=== PATIENT | female | born 1960 | race Caucasian/White ===

== ENCOUNTER 2019-06-02 06:05 | Inpatient (IN) | payer BC ==
[~2019-06-02 06:05] MED LIST: Acetaminophen 325 MG Tab PO SCH; Pregabalin 25 MG Cap PO SCH; oxyCODONE ER 10 MG TAB.ER PO SCH
[2019-06-02] MEDS ORDERED: Bisacodyl 5 MG Tab PO PRN (06:27)
[2019-06-02] MEDS ORDERED: Naloxone 0.4 MG/ML SDV IVPUSH PRN (06:27)
[2019-06-02] MEDS ORDERED: Ondansetron 4 MG/2 ML SDV IVPUSH PRN (06:27)
[2019-06-02] MEDS ORDERED: Morphine 2 MG/ML Syringe IVPUSH PRN (06:27)
[2019-06-02] MEDS ORDERED: Magnesium Hydroxide 400 MG/5 ML Susp 30 ML Cup PO PRN (06:27)
[2019-06-02] MEDS ORDERED: Sennosides 8.6 MG Tab PO PRN (06:27)
[2019-06-02] MEDS: ceFAZolin 1 GM Vial ONE ×2 (06:47→08:40)
[2019-06-02] MEDS: Bupivacaine 0.25% 10 ML SDV ONE ×2 (06:47→08:45)
[2019-06-02] MEDS: Iodine/Sodium Iodide 2% Tincture 30 ML Bottle ONE ×2 (06:48→08:39)
[2019-06-02] MEDS: Vancomycin 1 GM SDV ONE ×2 (06:49→08:49)
[2019-06-02] MEDS ORDERED: Lidocaine 1%/Sod Bicarbonate in NS 8.4% 1 ML Syringe IDERM PRN (07:00)
[2019-06-02] MEDS ORDERED: Sodium Chloride 0.9% 10 ML Syringe FLUSH PRN (07:00)
[2019-06-02] MEDS ORDERED: Lactated Ringers 1,000 ML IV SCH (07:00)
--- NOTE | 2019-06-02 07:09 | PCM.PREANE ---
Preanesthetic Assessment - Anesthesia/Transfusion/Family Hx Anesthesia History: Prior Anesthesia Without Reaction Family History of Anesthesia Reaction: No Transfusion History: No Prior Transfusion(s) - Review of Systems General: No Symptoms Pulmonary: No Symptoms Cardiovascular: No Symptoms Gastrointestinal: No Symptoms Neurological: No Symptoms Other: Reports: None - Physical Assessment NPO Status Date: 06/01/19 NPO Status Time: 18:00 Vital Signs: Last Vital Signs Temp 98.0 F 06/02/19 06:15 Pulse 72 06/02/19 06:15 Resp 16 06/02/19 06:15 BP 147/85 H 06/02/19 06:15 Pulse Ox 96 06/02/19 06:15 Height: 1.7 m Weight: 103.873 kg ASA Class: 2 Mental Status: Alert & Oriented x3 Airway Class: Mallampati = 3 Dentition: Reports: Normal Dentition Thyro-Mental Finger Breadths: 3 Mouth Opening Finger Breadths: 4 ROM/Head Extension: Full Lungs: Clear to Auscultation, Normal Respiratory Effort Cardiovascular: Regular Rate, Regular Rhythm - Lab Values: Laboratory Last Values PT 10.3 SECONDS (9.7-12.0) 05/21/19 13:05 INR 0.94 05/21/19 13:05 MRSA (PCR) Negative 05/21/19 13:05 - Allergies Allergies/Adverse Reactions: Allergies Allergy/AdvReac Type Severity Reaction Status Date / Time pralu-2 TR Allergy Hives Uncoded 05/30/19 09:25 - Acknowledgements Anesthesia Type Planned: General Anesthesia, Spinal, Regional Block Pt an Appropriate Candidate for the Planned Anesthesia: Yes Alternatives and Risks of Anesthesia Discussed w Pt/Guardian: Yes Pt/Guardian Understands and Agrees with Anesthesia Plan: Yes PreAnesthesia Questionnaire HEENT History: Reports: Impaired Vision Cardiovascular History: Reports: High Cholesterol, Hypertension [employer] FEEDBACK History: Reports: Musculoskeletal History: Reports: Osteoarthritis Neurological History: Reports: Migraines Psychiatric History: Reports: Anxiety, Depression Other Hematologic History: States she bruises easily Oncologic (Cancer) History: Reports: Cervix - Past Surgical History HEENT Surgical History: Reports: None Cardiovascular Surgical History: Reports: None GI Surgical History: Reports: Other (See Below) Other GI Surgeries/Procedures: Sleeve Gastrectomy Female Surgical History: Reports: Cervical Cryotherapy, Other (See Below) Other Female Surgeries/Procedures: Colposcopy - SUBSTANCE USE Smoking Status *Q: Never Smoker Tobacco Use Within Last Twelve Months: No Recreational Drug Use History: No - HOME MEDS Home Medications: Home Meds Cholecalciferol (Vitamin D3) [Vitamin D3] 1 - 2 tab PO DAILY 05/30/19 [History] - CURRENT (IN HOUSE) MEDS Current Meds: Current Medications Acetaminophen (Tylenol) 975 mg PO ONETIME [facility] Last Admin: 06/02/19 06:23 Dose: 975 mg Bisacodyl (Dulcolax) 5 mg PO DAILY PRN PRN Reason: Constipation Morphine Sulfate 8 mg/Epinephrine HCl 0.3 mg/Cefuroxime Sodium 750 mg/Ketorolac Tromethamine 30 mg/Sodium Chloride 27.9 ml 0 mg .XX ONETIME ONE Stop: 06/02/19 07:31 Cyclobenzaprine HCl (Flexeril) 10 mg PO TID PRN PRN Reason: Spasms Docusate Sodium (Colace) 100 mg PO BID [facility] Famotidine (Pepcid) 20 mg PO Q12H [facility] Lactated Ringer's (Ringers, Lactated) 1,000 mls @ 125 mls/hr IV ASDIRECTED [facility] Stop: 06/02/19 23:00 Last Admin: 06/02/19 06:35 Dose: 125 mls/hr Cefazolin Sodium/Dextrose 2 gm (/ Premix) 50 mls @ 100 mls/hr IV Q8H [facility] Stop: 06/02/19 22:59 Ketorolac Tromethamine (Toradol) 15 mg IVPUSH Q6H PRN PRN Reason: Pain Lidocaine/Sodium Bicarbonate (Buffered Lidocaine 1% In Ns 8.4%) 0.25 ml IDERM ONETIME PRN PRN Reason: Prior to IV Start Stop: 06/02/19 18:00 Last Admin: 06/02/19 06:34 Dose: 0.25 ml Magnesium Hydroxide (Milk Of Magnesia) 30 ml PO BID PRN PRN Reason: Constipation Morphine Sulfate (Morphine) 2 mg IVPUSH Q2H PRN PRN Reason: Breakthrough Pain Naloxone HCl (Narcan) 0.1 mg IVPUSH Q5M PRN PRN Reason: Oversedation Ondansetron HCl (Zofran) 4 mg IVPUSH Q6H PRN PRN Reason: Nausea/Vomiting Oxycodone HCl (Oxycontin) 10 mg PO ONETIME [facility] Last Admin: 06/02/19 06:24 Dose: 10 mg Oxycodone/Acetaminophen (Percocet 325-5 Mg) 1 - 2 tab PO Q4H PRN PRN Reason: Pain Pregabalin (Lyrica) 50 mg PO ONETIME [facility] Last Admin: 06/02/19 06:23 Dose: 50 mg Rivaroxaban (Xarelto) 10 mg PO DAILY [facility] Senna (Senna) 8.6 mg PO BID PRN PRN Reason: Constipation Sodium Chloride (Saline Flush) 10 ml FLUSH ASDIRECTED PRN PRN Reason: Keep Vein Open Stop: 06/02/19 18:00 Discontinued Medications Bupivacaine HCl (Sensorcaine-Mpf 0.25%) Confirm Administered Dose 30 ml .ROUTE .STK-MED ONE Stop: 06/02/19 06:16 Last Admin: 06/02/19 06:47 Dose: 30 ml Cefazolin Sodium (Ancef) Confirm Administered Dose 2 gm .ROUTE .STK-MED ONE Stop: 06/02/19 06:16 Last Admin: 06/02/19 06:47 Dose: 2 gm Iodine (Iodine 2% Mild Tincture) Confirm Administered Dose 30 ml .ROUTE .STK- MED ONE Stop: 06/02/19 06:16 Last Admin: 06/02/19 06:48 Dose: 18 ml Tranexamic Acid (Cyklokapron) Confirm Administered Dose 1,000 mg .ROUTE .STK- MED ONE Stop: 06/02/19 06:16 Last Admin: 06/02/19 06:48 Dose: 1,000 mg Vancomycin HCl (Vancomycin) Confirm Administered Dose 1 gm .ROUTE .STK-MED ONE Stop: 06/02/19 06:16 Last Admin: 06/02/19 06:49 Dose: 1 gm
[2019-06-02] MEDS ORDERED: fentaNYL 100 MCG/2 ML SDV ONE (07:23)
[2019-06-02] MEDS ORDERED: Midazolam 1 MG/ML 2 ML SDV ONE (07:24)
[2019-06-02] MEDS ORDERED: Propofol 200 MG/20 ML SDV ONE (07:24)
[2019-06-02] MEDS ORDERED: EPINEPHrine 1 MG/1 ML Amp ONE (07:26)
[2019-06-02] MEDS ORDERED: ceFAZolin 1 GM Vial ONE (07:47)
[2019-06-02] MEDS ORDERED: Lidocaine 1% 4 ML ONE (07:49)
[2019-06-02] MEDS ORDERED: Lactated Ringers 1,000 ML ONE (07:56)
[2019-06-02] MEDS: Morphine 8 MG, EPINEPHrine 0.3 MG, Cefuroxime 750 MG, Ketorolac 30 MG, Sodium Chloride ... ONE ×10 (08:36→08:46)
[2019-06-02] MEDS ORDERED: Ropivacaine 0.5% 5 MG/ML 30 ML SDV ONE (09:15)
--- NOTE | 2019-06-02 09:54 | PCM.POSTAN ---
POST ANESTHESIA ASSESSMENT - MENTAL STATUS Mental Status: Alert, Oriented - VITAL SIGNS Vital Signs: Last Vital Signs Temp 98.2 F 06/02/19 09:18 Pulse 72 06/02/19 06:15 Resp 12 06/02/19 09:45 BP 104/62 06/02/19 09:45 Pulse Ox 96 06/02/19 09:46 - RESPIRATORY Respiratory Status: Respiratory Rate WNL, Airway Patent, O2 Saturation Stable - CARDIOVASCULAR CV Status: Pulse Rate WNL, Blood Pressure Stable - GASTROINTESTINAL GI Status: No Symptoms - PAIN Pain Score: 0 (post-SAB) - POST OP HYDRATION Hydration Status: Adequate & Stable
--- NOTE | 2019-06-02 09:58 | PCM.PRNOTE ---
- Free Text/Narrative Note: Postoperative regional pain control requested by surgeon. Pre-op Dx: Lt knee osteoarthritis. Post-op Rx: Total Lt knee arthroplasty. Procedure: Lt Adductor canal block with U/S guidance Requesting physician: Dr. Albin Herzog Risks and benefits discussed with the patient preoperatively including infection , bleeding, incomplete or failed block, possible nerve damage, local anesthetic toxicity. Permit signed. Patient after spinal anesthesia post surgery in PACU, stable , alert and awake. Right mid-thigh was prepped with Chloraprep x 1 and allowed to dry. Under aseptic technique, the left femoral artery and sartorius muscle were identified under ultrasound prior to needle insertion. 4" Stimuplex A needle #[id number] was inserted under US guidance. Under direct visualization of needle tip the injection of 0.5% Ropivacaine with 1:200k epinephrine, total of 30 mls in divided doses, maintaining negative aspiration was completed without problems. Blood return noticed once and the needle repositioned until aspiration was negative. No local anesthetic toxicity was noted. Patient is awake, stable and tolerated the procedure well. Time: 09:30 - 09:40 Date: 06/02/2019 Lance Marquis CRNA Please see attached U/S pictures.
[2019-06-02] MEDS: Acetaminophen/oxyCODONE 325-5 MG Tab PO PRN ×3 (10:09→23:56)
--- NOTE | 2019-06-02 10:19 | CR ---
Left knee: AP and lateral views of the left knee were obtained. Comparison: No previous knee study. Knee prosthesis is noted. Components are aligned. Soft tissue air is noted from the surgical procedure. No acute bony abnormality is appreciated. Impression: 1. Satisfactory postop radiographic appearance of recently placed left knee prosthesis. Diagnostic code #2 This report was dictated in [place] Standard Time
[2019-06-02] MEDS: Ketorolac 15 MG/ML SDV IVPUSH PRN ×2 (14:04→19:44)
[2019-06-02] MEDS: ceFAZolin 2 GM in Premix Bag 1 BAG IV SCH ×2 (16:41→23:57)
[2019-06-02] MEDS: Docusate Sodium 100 MG Cap PO SCH (21:21)
[2019-06-02] MEDS: Famotidine 20 MG Tab PO SCH (21:21)
[2019-06-02] MEDS: Cyclobenzaprine 10 MG Tab PO PRN (21:52)
[2019-06-03] MEDS: Ketorolac 15 MG/ML SDV IVPUSH PRN (03:07)
[2019-06-03] MEDS: Acetaminophen/oxyCODONE 325-5 MG Tab PO PRN ×3 (06:00→10:54)
[2019-06-03] MEDS: ceFAZolin 2 GM in Premix Bag 1 BAG IV SCH (07:56)
[2019-06-03] MEDS: Docusate Sodium 100 MG Cap PO SCH (07:59)
--- NOTE | 2019-06-03 08:04 | PCM48HPAN ---
Post Anesthesia Note - EVALUATION WITHIN 48HRS OF ANESTHETIC Vital Signs in Normal Range: Yes Patient Participated in Evaluation: Yes Respiratory Function Stable: Yes Airway Patent: Yes Cardiovascular Function Stable: Yes Hydration Status Stable: Yes Pain Control Satisfactory: Yes Nausea and Vomiting Control Satisfactory: Yes Mental Status Recovered: Yes Vital Signs: Last Vital Signs Temp 36.8 C 06/03/19 03:00 Pulse 71 06/03/19 03:00 Resp 14 06/03/19 03:00 BP 137/67 06/03/19 03:00 Pulse Ox 97 06/03/19 03:00 - COMMENTS/OBSERVATIONS Free Text/Narrative:: no anesthesia complications noted
--- NOTE | 2019-06-03 08:08 | PCM.SURGPN ---
- General Info Date of Service: 06/03/19 POD#: 1 Functional Status: Reports: Pain Controlled, Tolerating Diet, Ambulating, Urinating, Incentive Spirometry, Other (Therapy states pt did well with activities today.) - Patient Data Vitals - Most Recent: Last Vital Signs Temp 98.3 F 06/03/19 03:00 Pulse 71 06/03/19 03:00 Resp 14 06/03/19 03:00 BP 137/67 06/03/19 03:00 Pulse Ox 97 06/03/19 03:00 Weight - Most Recent: 229 lb I&O - Last 24 Hours: Intake & Output 06/02/19 06/03/19 06/03/19 22:59 06:59 14:59 Intake Total 120 50 Output Total 400 500 Balance -280 -450 Lab Results Last 24 Hrs: Laboratory Results - last 24 hr 06/03/19 Range/Units 05:45 WBC 6.19 (3.98-10.04) K/mm3 RBC 3.97 L (3.98-5.22) M/mm3 Hgb 11.5 (11.2-15.7) gm/dl Hct 36.6 (34.1-44.9) % MCV 92.2 (79.4-94.8) fl MCH 29.0 (25.6-32.2) pg MCHC 31.4 L (32.2-35.5) g/dl RDW Std Deviation 47.5 H (36.4-46.3) fL Plt Count 197 (182-369) K/mm3 MPV 10.5 (9.4-12.3) fl Med Orders - Current: Current Medications Bisacodyl (Dulcolax) 5 mg PO DAILY PRN PRN Reason: Constipation Cholecalciferol (Vitamin D3) 5,000 unit PO DAILY [facility] Cyclobenzaprine HCl (Flexeril) 10 mg PO TID PRN PRN Reason: Spasms Last Admin: 06/02/19 21:52 Dose: 10 mg Docusate Sodium (Colace) 100 mg PO BID [facility] Last Admin: 06/03/19 07:59 Dose: 100 mg Famotidine (Pepcid) 20 mg PO Q12H [facility] Last Admin: 06/02/19 21:21 Dose: 20 mg Cefazolin Sodium/Dextrose 2 gm (/ Premix) 50 mls @ 100 mls/hr IV Q8H [facility] Stop: 06/03/19 08:29 Last Admin: 06/03/19 07:56 Dose: 100 mls/hr Magnesium Hydroxide (Milk Of Magnesia) 30 ml PO BID PRN PRN Reason: Constipation Morphine Sulfate (Morphine) 2 mg IVPUSH Q2H PRN PRN Reason: Breakthrough Pain Naloxone HCl (Narcan) 0.1 mg IVPUSH Q5M PRN PRN Reason: Oversedation Ondansetron HCl (Zofran) 4 mg IVPUSH Q6H PRN PRN Reason: Nausea/Vomiting Oxycodone/Acetaminophen (Percocet 325-5 Mg) 1 - 2 tab PO Q4H PRN PRN Reason: Pain Last Admin: 06/03/19 06:00 Dose: 1 tab Rivaroxaban (Xarelto) 10 mg PO DAILY [facility] Senna (Senna) 8.6 mg PO BID PRN PRN Reason: Constipation Discontinued Medications Acetaminophen (Tylenol) 975 mg PO ONETIME [facility] Last Admin: 06/02/19 06:23 Dose: 975 mg Bupivacaine HCl (Sensorcaine-Mpf 0.25%) Confirm Administered Dose 30 ml .ROUTE .STK-MED ONE Stop: 06/02/19 06:16 Last Admin: 06/02/19 08:45 Dose: 30 ml Cefazolin Sodium (Ancef) Confirm Administered Dose 2 gm .ROUTE .STK-MED ONE Stop: 06/02/19 06:16 Last Admin: 06/02/19 08:40 Dose: 2 gm Cefazolin Sodium (Ancef) Confirm Administered Dose 2 gm .ROUTE .STK-MED ONE Stop: 06/02/19 07:48 Morphine Sulfate 8 mg/Epinephrine HCl 0.3 mg/Cefuroxime Sodium 750 mg/Ketorolac Tromethamine 30 mg/Sodium Chloride 27.9 ml 0 mg .XX ONETIME ONE Stop: 06/02/19 07:31 Last Admin: 06/02/19 08:46 Dose: 788.3 mg Epinephrine HCl (Adrenalin) Confirm Administered Dose 1 mg .ROUTE .STK-MED ONE Stop: 06/02/19 07:27 Fentanyl (Sublimaze) Confirm Administered Dose 100 mcg .ROUTE .STK-MED ONE Stop: 06/02/19 07:24 Lactated Ringer's (Ringers, Lactated) 1,000 mls @ 125 mls/hr IV ASDIRECTED [facility] Stop: 06/02/19 23:00 Last Admin: 06/02/19 06:35 Dose: 125 mls/hr Lidocaine HCl (Xylocaine-Mpf 1%) Confirm Administered Dose 4 mls @ as directed .ROUTE .STK-MED ONE Stop: 06/02/19 07:50 Lactated Ringer's (Ringers, Lactated) Confirm Administered Dose 1,000 mls @ as directed .ROUTE .STK-MED ONE Stop: 06/02/19 07:57 Iodine (Iodine 2% Mild Tincture) Confirm Administered Dose 30 ml .ROUTE .STK- MED ONE Stop: 06/02/19 06:16 Last Admin: 06/02/19 08:39 Dose: 18 ml Ketorolac Tromethamine (Toradol) 15 mg IVPUSH Q6H PRN PRN Reason: Pain Last Admin: 06/03/19 03:07 Dose: 15 mg Lidocaine/Sodium Bicarbonate (Buffered Lidocaine 1% In Ns 8.4%) 0.25 ml IDERM ONETIME PRN PRN Reason: Prior to IV Start Stop: 06/02/19 18:00 Last Admin: 06/02/19 06:34 Dose: 0.25 ml Midazolam HCl (Versed 1 Mg/Ml) Confirm Administered Dose 4 mg .ROUTE .STK-MED ONE Stop: 06/02/19 07:25 Oxycodone HCl (Oxycontin) 10 mg PO ONETIME [facility] Last Admin: 06/02/19 06:24 Dose: 10 mg Pregabalin (Lyrica) 50 mg PO ONETIME [facility] Last Admin: 06/02/19 06:23 Dose: 50 mg Propofol (Diprivan 20 Ml) Confirm Administered Dose 400 mg .ROUTE .STK-MED ONE Stop: 06/02/19 07:25 Ropivacaine (Naropin 0.5%) Confirm Administered Dose 30 ml .ROUTE .STK-MED ONE Stop: 06/02/19 09:16 Sodium Chloride (Saline Flush) 10 ml FLUSH ASDIRECTED PRN PRN Reason: Keep Vein Open Stop: 06/02/19 18:00 Tranexamic Acid (Cyklokapron) Confirm Administered Dose 1,000 mg .ROUTE .STK- MED ONE Stop: 06/02/19 06:16 Last Admin: 06/02/19 08:53 Dose: 1,000 mg Vancomycin HCl (Vancomycin) Confirm Administered Dose 1 gm .ROUTE .STK-MED ONE Stop: 06/02/19 06:16 Last Admin: 06/02/19 08:49 Dose: 1 gm - Exam Wound/Incisions: Dressing Dry and Intact General: Alert, Cooperative, No Acute Distress Lungs: Normal Respiratory Effort Extremities: Other (NVS intact for BLE. Mitra's negative for BLE.) Sepsis Event Note - Evaluation Sepsis Screening Result: No Definite Risk - Focused Exam Vital Signs: Vital Signs Temp Pulse Resp BP Pulse Ox 06/03/19 03:00 98.3 F 71 14 137/67 97 06/02/19 21:00 98 F 64 14 131/63 94 L Date Exam was Performed: 06/03/19 Time Exam was Performed: 08:05 - Problem List Review Problem List Initiated/Reviewed/Updated: Yes - My Orders Last 24 Hours: Active Orders 24 hr Category Date Time Status Communication Order [RC] ASDIRECTED Care 06/03/19 08:03 Active Communication Order [RC] PER UNIT ROUTINE Care 06/02/19 08:25 Active Cooling Warming Measures [RC] ASDIRECTED Care 06/02/19 08:25 Inactive Notify Provider [RC] ASDIRECTED Care 06/02/19 08:25 Active Ready for Discharge [RC] PER UNIT ROUTINE Care 06/03/19 07:54 Active Vital Signs [RC] Q1H Care 06/02/19 08:25 Inactive Regular Diet [DIET] Diet 06/02/19 Lunch Active COMPREHENSIVE METABOLIC PN,CMP [CHEM] AM Lab 06/03/19 05:45 Received Cholecalciferol (Vitamin D3) [Vitamin D3] Med 06/03/19 09:00 Active 5,000 unit PO DAILY Docusate Sodium [Colace] Med 06/02/19 21:00 Active 100 mg PO BID Famotidine [Pepcid] Med 06/02/19 21:00 Active 20 mg PO Q12H Rivaroxaban [Xarelto] Med 06/03/19 09:00 Pending 10 mg PO DAILY ceFAZolin [Ancef] 2 gm Med 06/02/19 16:00 Active Premix Bag 1 bag IV Q8H Medication Orders Bisacodyl (Dulcolax) 5 mg PO DAILY PRN PRN Reason: Constipation Cholecalciferol (Vitamin D3) 5,000 unit PO DAILY [facility] Cyclobenzaprine HCl (Flexeril) 10 mg PO TID PRN PRN Reason: Spasms Last Admin: 06/02/19 21:52 Dose: 10 mg Docusate Sodium (Colace) 100 mg PO BID [facility] Last Admin: 06/03/19 07:59 Dose: 100 mg Admin: 06/02/19 21:21 Dose: 100 mg Famotidine (Pepcid) 20 mg PO Q12H [facility] Last Admin: 06/02/19 21:21 Dose: 20 mg Cefazolin Sodium/Dextrose 2 gm (/ Premix) 50 mls @ 100 mls/hr IV Q8H [facility] Stop: 06/03/19 08:29 Last Admin: 06/03/19 07:56 Dose: 100 mls/hr Infusion: 06/03/19 00:27 Dose: 100 mls/hr Admin: 06/02/19 23:57 Dose: 100 mls/hr Infusion: 06/02/19 17:11 Dose: 100 mls/hr Admin: 06/02/19 16:41 Dose: 100 mls/hr Magnesium Hydroxide (Milk Of Magnesia) 30 ml PO BID PRN PRN Reason: Constipation Morphine Sulfate (Morphine) 2 mg IVPUSH Q2H PRN PRN Reason: Breakthrough Pain Naloxone HCl (Narcan) 0.1 mg IVPUSH Q5M PRN PRN Reason: Oversedation Ondansetron HCl (Zofran) 4 mg IVPUSH Q6H PRN PRN Reason: Nausea/Vomiting Oxycodone/Acetaminophen (Percocet 325-5 Mg) 1 - 2 tab PO Q4H PRN PRN Reason: Pain Last Admin: 06/03/19 06:00 Dose: 1 tab Admin: 06/02/19 23:56 Dose: 1 tab Admin: 06/02/19 17:10 Dose: 2 tab Admin: 06/02/19 10:09 Dose: 2 tab Rivaroxaban (Xarelto) 10 mg PO DAILY [facility] Senna (Senna) 8.6 mg PO BID PRN PRN Reason: Constipation - Assessment Assessment (Free Text/Narrative):: POD#1 - left TKA - Plan Plan (Free Text/Narrative):: 1. Hgb 11.5. 2. Discharge to home today. 3. Outpatient therapy. 4. Xarelto has been recommended for VTE prophylaxis due to hx gastric sleeve procedure. Rx sent to pharmacy. The pt states she may be unwilling to use the medication. She states she has used ASA in the past and "did well". She is aware Xarelto is the recommended agent. The pt's case was discussed with Dr. Alanis.
[2019-06-03] MEDS: Famotidine 20 MG Tab PO SCH (08:47)
[2019-06-03] MEDS ORDERED: Cholecalciferol (Vitamin D3) 5,000 UNIT Tab PO SCH (09:00)
[2019-06-03] MEDS ORDERED: Rivaroxaban 10 MG Tab PO SCH (09:00)
[2019-06-03] MEDS: Cyclobenzaprine 10 MG Tab PO PRN (10:12)
--- NOTE | 2019-06-03 18:10 | PCM.DCSUM1 ---
Discharge Summary - Hospital Course Brief History: Trisha is a 58 yo female who underwent left TKA with Dr. Alanis on . The procedure was completed under spinal anesthesia with sedation. The pt tolerated the procedure well and was admitted to the [facility] under Medical-Surgical status. The pt's Hospital course was uneventful. The pt's Hgb on POD#1 was 11.5. On POD#1, Xarelto 10mg PO daily was initiated for VTE prophylaxis. SCDs and TEDs were also ordered. A Mepilex dressing was placed at the incision site at the time of surgery and remained clean and dry. The pt participated in P.T. and O.T. and progressed well. The pt was allowed to WBAT and used a FWW for mobility. On POD#1, the pt was deemed appropriate to discharge to home. - Discharge Data Discharge Date: 06/03/19 Discharge Disposition: Home, Self-Care 01 Condition: Good - Referral to Home Health Primary Care Physician: PCP Not In Area - Patient Summary/Data Consults: Consultations 06/02/19 06:26 OT Evaluation and Treatment [CONS] Routine PT Evaluation and Treatment [CONS] Routine - Patient Instructions Diet: Usual Diet as Tolerated Activity: Apply Ice, As Tolerated, Elevate Extremity, Full Weight Bearing Driving: Do Not Drive Showering/Bathing: May Shower Wound/Incision Care: Keep Operative Site/Wound Site Clean and Dry, Do NOT Change Dressing Notify Provider of: Fever, Increased Pain, Swelling and Redness, Drainage, Nausea and/or Vomiting Other/Special Instructions: Please get up and moving around EVERY HOUR while awake. This helps to prevent blood clots. Please use your walker and have help with mobility as needed. Take a short walk in your home every hour while awake. Please take the Xarelto blood thinner medication daily as directed. This medication is being recommended due to your history of stomach surgery. Aspirin use could increase your risk of an ulcer or bleeding ulcer. At home, please complete the exercises that you learned during the Hospital stay. Schedule for physical therapy. Use the pain medication as needed. The medication may cause drowsiness and constipation. Contact your primary care provider for instructions if you are constipated. You may use a stool softener like docusate sodium or Colace 100mg twice daily and/or a laxative like Miralax daily for constipation. Increase your water and fiber intake while you are using the pain medication. Discontinue use of the pain medication as soon as able. Please do not use other medications that may cause drowsiness (other pain medications, anxiety pills, cold medications, sleeping pills, etc) while using the prescription pain medication. Do not use alcohol while using the pain medication. You may use acetaminophen or Tylenol for pain management, however, please ensure you are not using over 4000 mg or 4 grams of acetaminophen per day from all sources. Your pain medication has 325mg of acetaminophen per tablet. Wear the KARLA hose during the day and you may remove these at night. Elevate the limb to decrease swelling. Place ice to the area often. Place a towel between your skin and the blue pad. Use the incentive spirometer often. Take deep breaths throughout the day. Please keep the dressing in place until follow-up. Notify the Clinic if the dressing becomes saturated. Increase your protein intake while you are healing. Call the Clinic with questions or concerns - [phone]. - Discharge Plan *PRESCRIPTION DRUG MONITORING PROGRAM REVIEWED*: No *COPY OF PRESCRIPTION DRUG MONITORING REPORT IN PATIENT NATALI: No Prescriptions/Med Rec: Acetaminophen/oxyCODONE [Percocet 325-5 MG] 1 - 2 tab PO Q4H PRN #60 tablet PRN Reason: Pain Cyclobenzaprine [Flexeril] 10 mg PO BID PRN #40 tablet PRN Reason: Spasms Rivaroxaban [Xarelto] 10 mg PO DAILY #30 tablet Home Medications: Home Meds Cholecalciferol (Vitamin D3) [Vitamin D3] 1 - 2 tab PO DAILY 05/30/19 [History] Acetaminophen/oxyCODONE [Percocet 325-5 MG] 1 - 2 tab PO Q4H PRN #60 tablet [Rx] Cyclobenzaprine [Flexeril] 10 mg PO BID PRN #40 tablet 06/03/19 [Rx] Docusate Sodium [Colace] 100 mg PO BID cap 06/03/19 [Rx] Famotidine [Pepcid] 20 mg PO Q12H tablet 06/03/19 [Rx] Magnesium Hydroxide [Milk of Magnesia] 30 ml PO BID PRN cup 06/03/19 [Rx] Rivaroxaban [Xarelto] 10 mg PO DAILY #30 tablet 06/03/19 [Rx] Sennosides [Senna] 8.6 mg PO BID PRN tablet 06/03/19 [Rx] bisacodyL [Dulcolax] 5 mg PO DAILY PRN tablet 06/03/19 [Rx] Patient Handouts: Rivaroxaban oral tablets, Total Knee Replacement, Easy-to- Read Referrals: Zeenat Zelaya PA-C [Physician Teachers Assistant] - - Discharge Summary/Plan Comment DC Time >30 min.: No - Patient Data Vitals - Most Recent: Last Vital Signs Temp 98.6 F 06/03/19 08:01 Pulse 93 06/03/19 08:01 Resp 14 06/03/19 08:01 BP 132/72 06/03/19 08:01 Pulse Ox 94 L 06/03/19 08:01 Weight - Most Recent: 229 lb I&O - Last 24 hours: Intake & Output 06/03/19 06/03/19 06/03/19 06:59 14:59 22:59 Intake Total 50 Output Total 500 Balance -450 Lab Results - Last 24 hrs: Laboratory Results - last 24 hr 06/03/19 06/03/19 Range/Units 05:45 05:45 WBC 6.19 (3.98-10.04) K/mm3 RBC 3.97 L (3.98-5.22) M/mm3 Hgb 11.5 (11.2-15.7) gm/dl Hct 36.6 (34.1-44.9) % MCV 92.2 (79.4-94.8) fl MCH 29.0 (25.6-32.2) pg MCHC 31.4 L (32.2-35.5) g/dl RDW Std Deviation 47.5 H (36.4-46.3) fL Plt Count 197 (182-369) K/mm3 MPV 10.5 (9.4-12.3) fl Sodium 135 L (136-145) mEq/L Potassium 3.9 (3.5-5.1) mEq/L Chloride 101 (98-107) mEq/L Carbon Dioxide 26 (21-32) mEq/L Anion Gap 11.9 (5-15) BUN 12 (7-18) mg/dL Creatinine 0.8 (0.55-1.02) mg/dL Est Cr Clr Drug Dosing 75.45 mL/min Estimated GFR (MDRD) > 60 (>60) mL/min BUN/Creatinine Ratio 15.0 (14-18) Glucose 114 H (74-106) mg/dL Calcium 8.3 L (8.5-10.1) mg/dL Total Bilirubin 0.5 (0.2-1.0) mg/dL AST 13 L (15-37) U/L ALT 19 (14-59) U/L Alkaline Phosphatase 75 (46-116) U/L Total Protein 5.9 L (6.4-8.2) g/dl Albumin 2.9 L (3.4-5.0) g/dl Globulin 3.0 gm/dL Albumin/Globulin Ratio 1.0 (1-2) Med Orders - Current: Current Medications Discontinued Medications Acetaminophen (Tylenol) 975 mg PO ONETIME [facility] Last Admin: 06/02/19 06:23 Dose: 975 mg Bisacodyl (Dulcolax) 5 mg PO DAILY PRN PRN Reason: Constipation Bupivacaine HCl (Sensorcaine-Mpf 0.25%) Confirm Administered Dose 30 ml .ROUTE .STK-MED ONE Stop: 06/02/19 06:16 Last Admin: 06/02/19 08:45 Dose: 30 ml Cefazolin Sodium (Ancef) Confirm Administered Dose 2 gm .ROUTE .STK-MED ONE Stop: 06/02/19 06:16 Last Admin: 06/02/19 08:40 Dose: 2 gm Cefazolin Sodium (Ancef) Confirm Administered Dose 2 gm .ROUTE .STK-MED ONE Stop: 06/02/19 07:48 Cholecalciferol (Vitamin D3) 5,000 unit PO DAILY [facility] Last Admin: 06/03/19 08:47 Dose: 5,000 unit Morphine Sulfate 8 mg/Epinephrine HCl 0.3 mg/Cefuroxime Sodium 750 mg/Ketorolac Tromethamine 30 mg/Sodium Chloride 27.9 ml 0 mg .XX ONETIME ONE Stop: 06/02/19 07:31 Last Admin: 06/02/19 08:46 Dose: 788.3 mg Cyclobenzaprine HCl (Flexeril) 10 mg PO TID PRN PRN Reason: Spasms Last Admin: 06/03/19 10:12 Dose: 10 mg Docusate Sodium (Colace) 100 mg PO BID [facility] Last Admin: 06/03/19 07:59 Dose: 100 mg Epinephrine HCl (Adrenalin) Confirm Administered Dose 1 mg .ROUTE .STK-MED ONE Stop: 06/02/19 07:27 Famotidine (Pepcid) 20 mg PO Q12H [facility] Last Admin: 06/03/19 08:47 Dose: 20 mg Fentanyl (Sublimaze) Confirm Administered Dose 100 mcg .ROUTE .STK-MED ONE Stop: 06/02/19 07:24 Lactated Ringer's (Ringers, Lactated) 1,000 mls @ 125 mls/hr IV ASDIRECTED [facility] Stop: 06/02/19 23:00 Last Admin: 06/02/19 06:35 Dose: 125 mls/hr Cefazolin Sodium/Dextrose 2 gm (/ Premix) 50 mls @ 100 mls/hr IV Q8H [facility] Stop: 06/03/19 08:29 Last Admin: 06/03/19 07:56 Dose: 100 mls/hr Lidocaine HCl (Xylocaine-Mpf 1%) Confirm Administered Dose 4 mls @ as directed .ROUTE .STK-MED ONE Stop: 06/02/19 07:50 Lactated Ringer's (Ringers, Lactated) Confirm Administered Dose 1,000 mls @ as directed .ROUTE .STK-MED ONE Stop: 06/02/19 07:57 Iodine (Iodine 2% Mild Tincture) Confirm Administered Dose 30 ml .ROUTE .STK- MED ONE Stop: 06/02/19 06:16 Last Admin: 06/02/19 08:39 Dose: 18 ml Ketorolac Tromethamine (Toradol) 15 mg IVPUSH Q6H PRN PRN Reason: Pain Last Admin: 06/03/19 03:07 Dose: 15 mg Lidocaine/Sodium Bicarbonate (Buffered Lidocaine 1% In Ns 8.4%) 0.25 ml IDERM ONETIME PRN PRN Reason: Prior to IV Start Stop: 06/02/19 18:00 Last Admin: 06/02/19 06:34 Dose: 0.25 ml Magnesium Hydroxide (Milk Of Magnesia) 30 ml PO BID PRN PRN Reason: Constipation Midazolam HCl (Versed 1 Mg/Ml) Confirm Administered Dose 4 mg .ROUTE .STK-MED ONE Stop: 06/02/19 07:25 Morphine Sulfate (Morphine) 2 mg IVPUSH Q2H PRN PRN Reason: Breakthrough Pain Naloxone HCl (Narcan) 0.1 mg IVPUSH Q5M PRN PRN Reason: Oversedation Ondansetron HCl (Zofran) 4 mg IVPUSH Q6H PRN PRN Reason: Nausea/Vomiting Oxycodone HCl (Oxycontin) 10 mg PO ONETIME [facility] Last Admin: 06/02/19 06:24 Dose: 10 mg Oxycodone/Acetaminophen (Percocet 325-5 Mg) 1 - 2 tab PO Q4H PRN PRN Reason: Pain Last Admin: 06/03/19 10:54 Dose: 1 tab Pregabalin (Lyrica) 50 mg PO ONETIME [facility] Last Admin: 06/02/19 06:23 Dose: 50 mg Propofol (Diprivan 20 Ml) Confirm Administered Dose 400 mg .ROUTE .STK-MED ONE Stop: 06/02/19 07:25 Rivaroxaban (Xarelto) 10 mg PO DAILY [facility] Last Admin: 06/03/19 09:59 Dose: 10 mg Ropivacaine (Naropin 0.5%) Confirm Administered Dose 30 ml .ROUTE .STK-MED ONE Stop: 06/02/19 09:16 Senna (Senna) 8.6 mg PO BID PRN PRN Reason: Constipation Sodium Chloride (Saline Flush) 10 ml FLUSH ASDIRECTED PRN PRN Reason: Keep Vein Open Stop: 06/02/19 18:00 Tranexamic Acid (Cyklokapron) Confirm Administered Dose 1,000 mg .ROUTE .STK- MED ONE Stop: 06/02/19 06:16 Last Admin: 06/02/19 08:53 Dose: 1,000 mg Vancomycin HCl (Vancomycin) Confirm Administered Dose 1 gm .ROUTE .STK-MED ONE Stop: 06/02/19 06:16 Last Admin: 06/02/19 08:49 Dose: 1 gm
--- NOTE | 2019-06-06 10:49 | PCM.OPNOTE ---
- General Post-Op/Procedure Note Date of Surgery/Procedure: 06/02/19 Operative Procedure(s): left total knee arthroplasty Pre Op Diagnosis: left knee osteoarthrosis Post-Op Diagnosis: Same Anesthesia Technique: Local, MAC, Spinal Primary Surgeon: Albin Alanis Anesthesia Provider: Lance Marquis Informatics Pharmacist: Zeenat Zelaya Informatics Pharmacist: Pepper Pineda in mLs: 5 Complications: None Condition: Good Free Text/Narrative:: 4/4 9mm 32x10
--- NOTE | 2019-06-06 11:09 | OR ---
DATE OF OPERATION: 06/02/2019 SURGEON: Albin Alanis MD OPERATION PERFORMED: Left total knee arthroplasty. PREOPERATIVE DIAGNOSIS: Left knee osteoarthrosis. POSTOPERATIVE DIAGNOSIS: Left knee osteoarthrosis. ANESTHESIA: Local MAC with spinal. ANESTHESIA PROVIDER: Lance Marquis CRNA COMPOSITION PROFESSOR: Zeenat Zelaya PA-C, and Pepper Pineda LPN. ESTIMATED BLOOD LOSS: 5 mL. COMPLICATIONS: None. CONDITION: Stable. IMPLANTS: 1. Sarah size 4 cemented PS femur. 2. Sarah size 4 cemented universal tibial base plate. 3. Sarah size 4 9 mm PS X3 polyethylene insert. 4. Sarah size 32 x 10 mm cemented asymmetric patella. DESCRIPTION OF PROCEDURE: The patient was identified in the preop holding area. Proper site was marked and identified by the surgeon. The patient was taken back to the operating theater. After adequate anesthesia, the patient's left lower extremity had a nonsterile tourniquet applied and it was sterilely prepped and draped in the usual sterile fashion. OR time-out was performed. The patient received 2 g IV Ancef. At this time, the let lower extremity was exsanguinated. Tourniquet was insufflated to 300 mmHg. Standard medial parapatellar incision was made. Medial parapatellar arthrotomy was created. Deep fibers of the MCL were raised and anterior fat pad was resected. At this time, attention was turned to the patella. Patella measured 24, it was resected to a 14 for a 32 x 10 mm patella. Drill holes were then drilled and found to be in adequate position. The drill was then drilled in the distal femur and the intramedullary distal femoral cutting guide was then placed. 8 mm was resected off the distal femur and was found to be an adequate resection. Sizing guide was placed. It was found to be a size 4 cemented PS femur that was shown on the implant record at the beginning of this dictation. The drill holes were drilled for the epicondylar axis using Whitesides line and epicondyles as reference. At this time, the 4-in-1 cutting block was placed. An anterior posterior and anterior and posterior chamfer cuts were then completed. Box cut was completed. Attention was turned to the tibia. The posterior medial lateral retractors were placed. The extramedullary tibial guide was placed. It was placed in the old footprint of the ACL. It was aligned with the center of the ankle and 0 degrees of slope, 9 mm was then resected off the unaffected side. There was found to be an acceptable reduction. At this time, posterior osteophytes were removed along with medial and lateral meniscus. A trial implant was placed with a correct sized tibia that was mentioned at the beginning of the dictation. A Sarah size 4 9 mm PS X3 polyethylene insert was then placed. The patient's knee was brought through range of motion. The patella was tracking centrally and was stable to varus and valgus stress. Alignment was found to be roughly at 0 degrees. The tibia was stamped and drilled in proper rotation. Cement was mixed on the back table. The universal tibial base plate was impacted in place. Next, the [place] size 4 cemented PS femur impacted into place and the [place] size 4 9 mm PS X3 polyethylene insert was placed. The patient's knee was brought into full extension. The patella was then cemented in place at this time. One liter dilute Betadine solution was irrigated through the knee along with 3 L of pulse lavage irrigation with Ancef. Periarticular injection was then completed. The patient's knee was brought through a range of motion. Once the cement had time to set up and it was found to be stable to varus valgus stress, the patella was tracking centrally with full range of motion. At this time, a #2 barbed suture was used for closure of the medial parapatellar arthrotomy. Topical tranexamic acid was placed. 2-0 Vicryl was used subcutaneously, Prineo was used for the skin. The patient tolerated the procedure well and was sent to the PACU in stable condition. ZACK /[id number] GLENNA
== END 2019-06-03 11:00 | disposition home or self-care (01) | DRG 302 ==
LOC: JD.SDS 06:05 → JD.OB 06:05 → JD.SDS 06:06 → JD.OB 06:10 → JD.SDS 06:11 → JD.OB 06:11 → JD.SDS 11:27 → JD.OB 11:27 → UNDOADMIN 11:28 → JD.OB 11:28 → UNDOADMIN 11:52 → JD.OB 11:52
PROVIDERS: ADMIT Orthopaedic Surgery; ATTEND Orthopaedic Surgery
PROC: 0SRD0J9 Replacement of Left Knee Joint with Synthetic Substitute, Cemented, Open Approach (ICD-10-PCS; principal; 2019-06-02)
DX: M17.12 Unilateral primary osteoarthritis, left knee (principal); I10 Essential (primary) hypertension; F41.9 Anxiety disorder, unspecified; F32.9 Major depressive disorder, single episode, unspecified; Z79.899 Other long term (current) drug therapy; E66.9 Obesity, unspecified
CPT/HCPCS: 01402; 36415; 64450; 73560-26-LT; 73560-LT; 80053; 85027; 85610; 87641; 97110-GP; 97116-GP; 97161-GP; 97165-GO; 97535-GO; A9270-GY; C1713; C1776; J0171; J0690; J0697; J1885; J2001; J2250; J2270; J2704; J2795; J3010; J3370; J3490; J7120